=== PATIENT | female | born 1980 | race Caucasian/White ===

== ENCOUNTER 2017-01-31 14:06 | Inpatient (IN) | payer OTHER ==
[2017-01-31] VITALS (16 sets, daily range): BP systolic 104–119; BP diastolic 59–82; PULSE 74–89; RESP 9–19; TEMP 97.5–99.4; O2SAT 97–98
[~2017-01-31] VITALS: Ht 160 cm; Wt 92.0 kg
[2017-01-31] MEDS ORDERED: LACTATED RINGER'S 1000 ML INJ 1,000 ML IV PRN (14:46)
[2017-01-31] MEDS: LACTATED RINGER'S 1000 ML INJ 1,000 ML IV SCH ×2 (15:00→18:05)
[2017-01-31] MEDS ORDERED: OXYTOCIN 30 UNITS-500ML PREMIX 500 ML IV ONE ×2 (15:00→23:00)
[2017-01-31] MEDS ORDERED: MINERAL OIL 10 ML VIAL TOPICAL PRN (15:00)
[2017-01-31] MEDS ORDERED: SODIUM CHLORID 0.9% 500 ML INJ 500 ML IV PRN (15:00)
[2017-01-31] MEDS ORDERED: ONDANSETRON HCL 4 MG/2 ML VIAL IV PUSH PRN (15:00)
--- NOTE | 2017-01-31 15:02 | PD ---
HPI Chief Complaint abd pain Date Seen: Jan 31, 2017 Time Seen: 14:52 Travel History International Travel<30 Days: No Contact w/Intl Traveler<30Days: No Known Affected Area: No History of Present Illness HPI Pt si a 36y/o @ 39.6wks. She has PNC with Dr. Flores. She was scheduled for a 1' c/s tomorrow for small pelvis. She states that approx 1hr prior to coming here she started having abd pain. She took tylenol but it continued so she decided to come in. She denies LOF or VB. +FM. Weeks Gestation: 39 Para: 0 : 1 History Past Medical History Medical History: Denies Significant Hx Obstetric History Obstetric History 1. current Past Surgical History Surgical History: No Previous Surgery Family History Family History: Negative Social History Alcohol Use: No Tobacco Use: No Substance Abuse: No Review of Systems Except as stated in HPI: all other systems reviewed are Neg Physical Exam Narrative GENERAL: Well-nourished, well-developed patient. SKIN: Warm and dry. HEAD: Normocephalic and atraumatic. EYES: No scleral icterus. No injection or drainage. ENT: No nasal drainage noted. Mucous membranes pink. Airway patent. EXTREMITIES: No cyanosis NEUROLOGICAL: Awake and alert. Motor and sensory grossly within normal limits. FHTs: 140s, +accels, no decels, moderate variability, reactive TOCO: ctx q2m CVX: 1/30/-2, posterior cervix behind head, soft; narrow introitus but adequate pelvimetry Data Data Vital Signs Reviewed: Yes Group B Strep: Negative MDM Plan 36y/o @ 39.6wks in latent labor. -- adequate pelvis, would like to attempt ; counseled that c/s may be necessary for indications or failure to progress/CPD if pushing is not- successful -- FHT cat 1 -- toco with RUCs -- admit to L&D -- CLD, epidural PRN Dr. Flores (pulmonary function technologist) notified of pt status and agrees with POC to attempt . Courtesy orders placed. She will assume care of the pt. Diagnosis Diagnosis: Primary Impression: 39 weeks gestation of Additional Impressions: Uterine contractions during Obesity affecting in third trimester Chauncey Gamboa MD Jan 31, 2017 15:02
[2017-01-31] MEDS ORDERED: SODIUM CHLOR 0.9% 1000 ML INJ 1,000 ML IV PRN (15:06)
[2017-01-31] MEDS ORDERED: TYLE325T PO (15:11)
[2017-01-31] MEDS ORDERED: PREN29TA PO (15:11)
[2017-01-31 16:16] LABS: AUTOMATED NEUTROPHIL # 6.6 TH/MM3 (1.8-7.7); BASOPHIL % 0.4 % (0.0-2.0); EOSINOPHIL # 0.1 TH/MM3 (0-0.4); EOSINOPHIL % 1.1 % (0.0-4.0); HEMATOCRIT 38.7 % (35.0-46.0); HEMOGLOBIN 13.4 GM/DL (11.6-15.3); LYMPH % 18.7 % (9.0-44.0); LYMPHOCYTE # 1.7 TH/MM3 (1.0-4.8); MEAN CELL VOLUME 95.7 FL (80.0-100.0); MEAN CORPUSCULAR HEMOGLOBIN 33.2 PG (27.0-34.0); MEAN CORPUSCULAR HGB CONC 34.7 % (32.0-36.0); MEAN PLATELET VOLUME 11.4 FL (7.0-11.0); MONO % 7.5 % (0.0-8.0); MONOCYTE # 0.7 TH/MM3 (0-0.9); NEUT % 72.3 % (16.0-70.0); PLATELET COUNT 145 TH/MM3 (150-450); RED BLOOD COUNT 4.04 MIL/MM3 (4.00-5.30); WHITE BLOOD COUNT 9.1 TH/MM3 (4.0-11.0)
[2017-01-31 16:21] LABS: BACTERIA, URINE MANY /hpf; BILIRUBIN, URINE NEG (NEG); BLOOD, URINE NEG (NEG); GLUCOSE,URINE NEG (NEG); KETONE, URINE NEG (NEG); MUCUS URINE FEW /lpf (OCC); NITRITE,URINE NEG (NEG); SQUAMOUS EPITHELIAL CELL URINE 2 /hpf (0-5); URINE COLOR YELLOW (YELLW/STRAW); URINE LEUKOCYTE ESTERASE LARGE (NEG)
[2017-01-31] MEDS ORDERED: ACETAMINOPHEN 325 MG TAB PO ONE (20:00)
[2017-01-31] MEDS ORDERED: LACTATED RINGER'S 1000 ML INJ 1,000 ML IV ONE (20:44)
--- NOTE | 2017-01-31 20:48 | PD.CONS ---
History & Physical H&P Pt is a 36 yo G1 with iup at 39w6 d who presented with regular contractions q 1- 2 minutes. She was 1cm dilate and has not progressed. Discussed with RN jordan placement for mechanical dilation, pt was in agreement.l While was en route to hospital, pt developed tachycardia and a low grade temp. She was still 1 cm, not a good candidate for jordan placement at this time. She was given a fluid bolus and tylenol and tachycardia did not resolve. Concern for chorioamnionitis. Discussed she is remote from delivery and seems to be developing an infection and next best step would be to proceed with cd. PT and in agreement with plan of care. Consents signed on chart. OR team and anesthesia informed. Savanah Flores MD Jan 31, 2017 20:48
[2017-01-31] MEDS ORDERED: ceFAZolin INJ 1,000 MG VIAL ONE (20:52)
[2017-01-31] MEDS ORDERED: LACTATED RINGER'S 1000 ML INJ 1,000 ML IV SCH (21:14)
[2017-01-31] MEDS ORDERED: EPIDURAL-DO NOT ADMINISTER ANTICOAGULANTS PRN (21:15)
[2017-01-31] MEDS ORDERED: EPIDURAL-NALOXONE HCL 0.4 MG/ML AMP IV PUSH PRN (21:15)
[2017-01-31] MEDS ORDERED: EPIDURAL-NO SYSTEMIC NARCOTICS PRN (21:15)
[2017-01-31] MEDS ORDERED: EPIDURAL-DIPHENHYDRAMINE HCL 50 MG CAP PO PRN (21:15)
[2017-01-31] MEDS ORDERED: EPIDURAL-DIPHENHYDRAMINE HCL 50 MG/ML VIAL IV PUSH PRN (21:15)
[2017-01-31] MEDS ORDERED: METHYLERGONOVINE MALEATE 0.2 MG/ML VIAL ONE (21:43)
[2017-01-31] MEDS ORDERED: ceFAZolin 2 GM PREMIX 50 ML IV SCH (21:45)
[2017-01-31] MEDS ORDERED: CITRIC ACID-SODIUM CITRATE LIQ 30 ML UDC PO SCH (22:15)
[2017-01-31] MEDS ORDERED: OXYTOCIN 30 UNITS-500ML PREMIX 500 ML ONE (22:41)
--- NOTE | 2017-01-31 22:48 | PD.OB.DELI ---
Procedure Note Section Procedure Pre Op Diagnosis: (1) tachycardia before the onset of labor (2) Chorioamnionitis (3) 39 weeks gestation of Post Op Diagnosis: (1) 39 weeks gestation of (2) Chorioamnionitis (3) tachycardia before the onset of labor Performed by Savanah Flores Procedure: Primary Low Transverse Sec Indication for delivery: Maternal medical problems Previous condition: None Informed consent obtained: For anesthesia, For procedure Confirmed correct: Patient, Procedure, Site, Time-out taken Anesthesia: Spinal Medication prior to procedure: As documented in eMAR Monitoring during procedure: Blood pressure monitoring, Pulse oximetry Urinary catheter: Inserted using sterile technique, To dependent drainage, ml urine output (150) Sterile preparation: With 2% chlorexidine (Hibiclens) Position: Supine with wedge to right side, Supine with safety belt applied Operative Features Skin Incision: Pfannenstiel Uterine Incision: Low transverse w/knife / blunt ext Membranes Ruptured: Artificially, Amount of liquid (copious), Appearance of fluid (clear) Presentation: Occiput anterior Delivery date: Jan 31, 2017 Delivery time: 21:37 Delivery of : Uneventful : Female One Minute : 9 Five Minute : 9 Weight: 3740 Status of : Viable Placenta delivered: Intact Medications: Antibiotics, Oxytocin, Ergot derivatives Estimated blood loss: 800ml Procedure tolerated: Well Maternal Condition: Stable Condition: Stable Procedure in detail dictated Savanah Flores MD Jan 31, 2017 22:48
[2017-01-31] MEDS ORDERED: ZOLPIDEM TARTRATE 5 MG TAB PO PRN (23:00)
[2017-01-31] MEDS ORDERED: SODIUM CHLORIDE 0.9% FLUSH 10 ML FLUSH IV FLUSH PRN (23:00)
[2017-01-31] MEDS ORDERED: ACETAMINOPHEN 325 MG TAB PO PRN (23:00)
[2017-01-31] MEDS ORDERED: SIMETHICONE 80 MG CHEWABLE TAB PO PRN (23:00)
[2017-02-01 00:04] VITALS: BP 101/74; PULSE 90
[2017-02-01 00:05] VITALS: RESP 16; TEMP 98.5; O2SAT 96
[2017-02-01 04:00] VITALS: BP 107/61; PULSE 78; RESP 17; TEMP 98.6; O2SAT 97
[2017-02-01] MEDS: LACTATED RINGER'S 1000 ML INJ 1,000 ML IV SCH ×2 (04:57→09:58)
[2017-02-01] MEDS: ONDANSETRON HCL 4 MG/2 ML VIAL IV PUSH PRN ×2 (04:57→09:58)
[2017-02-01 06:27] LABS: AUTOMATED NEUTROPHIL # 10.3 TH/MM3 (1.8-7.7); BASOPHIL % 0.2 % (0.0-2.0); EOSINOPHIL % 0.1 % (0.0-4.0); HEMATOCRIT 33.8 % (35.0-46.0); HEMOGLOBIN 11.6 GM/DL (11.6-15.3); LYMPH % 8.7 % (9.0-44.0); MEAN CELL VOLUME 95.3 FL (80.0-100.0); MEAN CORPUSCULAR HEMOGLOBIN 32.6 PG (27.0-34.0); MEAN CORPUSCULAR HGB CONC 34.2 % (32.0-36.0); MONO % 4.6 % (0.0-8.0); MONOCYTE # 0.6 TH/MM3 (0-0.9); NEUT % 86.4 % (16.0-70.0); PLATELET COUNT 120 TH/MM3 (150-450); RED BLOOD COUNT 3.55 MIL/MM3 (4.00-5.30); RED CELL DISTRIBUTION WIDTH 14.1 % (11.6-17.2)
[2017-02-01 08:00] VITALS: BP 103/77; PULSE 84; RESP 18; TEMP 98.2
[2017-02-01] MEDS ORDERED: OXYTOCIN 30 UNITS-500ML PREMIX 500 ML IV PRN (09:00)
[2017-02-01] MEDS ORDERED: SODIUM CHLORIDE 0.9% FLUSH 10 ML FLUSH IV FLUSH SCH (09:00)
[2017-02-01 12:00] VITALS: BP 104/79; PULSE 88; RESP 18; TEMP 98.2
--- NOTE | 2017-02-01 12:36 | HHI.OB ---
Subjective Post Operative Day: 1 Remarks Pt still not ambulating, jordan in. Was nauseated, and got zofran. Pain well controlled. Objective Vitals/I&O Vital Signs Date Time Temp Pulse Resp B/P (MAP) Pulse Ox O2 Delivery O2 Flow Rate FiO2 02/01/17 08:00 98.2 18 02/01/17 08:00 84 103/77 (86) 02/01/17 04:00 98.6 78 17 107/61 (76) 97 02/01/17 00:05 98.5 16 96 02/01/17 00:04 90 101/74 (83) 01/31/17 23:33 97.7 01/31/17 23:31 104/59 (74) 01/31/17 23:26 15 98 01/31/17 23:25 77 01/31/17 23:17 85 17 115/73 (87) 97 01/31/17 23:00 19 01/31/17 23:00 9 97 01/31/17 22:59 77 111/70 (84) 01/31/17 22:47 97.5 83 16 98 01/31/17 22:46 109/68 (82) 01/31/17 19:00 82 15 117/81 (93) 01/31/17 18:59 99.4 01/31/17 18:30 98.1 16 01/31/17 18:19 81 119/82 (94) 01/31/17 17:29 18 01/31/17 17:29 74 111/75 (87) 01/31/17 16:29 89 119/71 (87) 01/31/17 16:28 98.4 18 Result Diagram: 02/01/17 0612 Objective Remarks GENERAL: Well-nourished, well-developed patient. CARDIOVASCULAR: Regular rate and rhythm without murmurs, gallops, or rubs. RESPIRATORY: Breath sounds equal bilaterally. No accessory muscle use. ABDOMEN/GI: Abdomen soft, non-tender, bowel sounds present. Incision: dressing clean, dry and intact. Fundus: Firm, non-tender at umbilicus. GENITOURINARY: Light to moderate bleeding. EXTREMITIES: No cyanosis or edema, non-tender, without signs of DVT. SCD in place Medications and IVs Current Medications Medications (Trade) Dose Ordered Sig/Nell Route Start Time Stop Time Status Last Admin Lactated Ringer's 1,000 ml @ 100 mls/hr Q10H IV 02/01/17 03:56 02/01/17 23:55 02/01/17 09:58 Oxytocin 500 ml @ 100 mls/hr UNSCH X1 PRN IV 02/01/17 09:00 02/02/17 08:59 (NS Flush) 2 ml BID IV FLUSH 02/01/17 09:00 (NS Flush) 2 ml UNSCH PRN IV FLUSH 01/31/17 23:00 (Mylicon Chew) 80 mg QID PRN PO 01/31/17 23:00 (Tylenol) 650 mg Q6H PRN PO 01/31/17 23:00 (Motrin) 600 mg Q6H PRN PO 01/31/17 23:00 (Percocet 5-325 Mg) 1 tab Q4H PRN PO 01/31/17 23:00 (Percocet 5-325 Mg) 2 tab Q4H PRN PO 01/31/17 23:00 (Micaela-Colace) 2 tab Q12H PRN PO 01/31/17 23:00 (Ambien) 5 mg HS PRN PO 01/31/17 23:00 (M-M-R Ii Inj) 0.5 ml ONCE ONCE SQ 02/01/17 16:00 02/01/17 16:01 (Boostrix Inj) 0.5 ml ONCE ONCE IM 02/01/17 16:00 02/01/17 16:01 (Zofran Inj) 4 mg Q6H PRN IV PUSH 01/31/17 23:00 02/01/17 09:58 Miscellaneous Information NO SYSTEMIC NARCOTICS TO BE GIVEN FO... UNSCH PRN .XX 01/31/17 21:15 02/01/17 21:14 (Narcan Inj) 0.4 mg UNSCH PRN IV PUSH 01/31/17 21:15 02/01/17 21:14 (Benadryl Inj) 25 mg Q6H PRN IV PUSH 01/31/17 21:15 02/01/17 21:14 (Benadryl) 50 mg Q6H PRN PO 01/31/17 21:15 02/01/17 21:14 Miscellaneous Information ALL NURSING DEPARTMENTS UNSCH PRN .XX 01/31/17 21:15 02/01/17 21:14 Assessment/Plan Problem List: (1) delivery delivered ICD Codes: O82 - Encounter for delivery without indication Assessment and Plan 36 yo POD 1 s/p primary for suspected chorio (maternal fever and tachycardia) Placental cultures still pending, no maternal fever since delivery Goals for today, remove jordan and void, ambulate, increase po intake, control pain D/c likely pod 2-3 Savanah Flores MD Feb 01, 2017 12:36
[2017-02-01] MEDS: IBUPROFEN 600 MG TAB PO PRN ×2 (13:27→21:16)
[2017-02-01] MEDS: oxyCODONE/ACETAMINOPHEN 5 MG/325 MG TAB PO PRN ×2 (15:54→21:16)
[2017-02-01] MEDS ORDERED: MEASLES, MUMPS, RUBELLA VACCINE 0.5 ML VIAL SQ ONE (16:00)
[2017-02-01] MEDS ORDERED: DIPHTH/TETANUS/ACEL PERTUSSIS (BOOSTER) 0.5 ML VIAL/PFS IM ONE (16:00)
[2017-02-01 21:00] VITALS: BP 97/66; PULSE 75; RESP 18; TEMP 98.7; O2SAT 98
[2017-02-01] MEDS: DOCUSATE SODIUM 50 MG/SENNA 8.6 MG TAB PO PRN (21:16)
[2017-02-02] MEDS: IBUPROFEN 600 MG TAB PO PRN ×2 (04:40→17:49)
[2017-02-02] MEDS: oxyCODONE/ACETAMINOPHEN 5 MG/325 MG TAB PO PRN ×3 (04:41→17:50)
[2017-02-02 08:00] VITALS: BP 103/71; PULSE 77; RESP 18; TEMP 98.2
--- NOTE | 2017-02-02 08:09 | HHI.OB ---
Subjective Post Operative Day: 2 Remarks doing well, eating OK Objective Vitals/I&O Vital Signs Date Time Temp Pulse Resp B/P (MAP) Pulse Ox O2 Delivery O2 Flow Rate FiO2 02/01/17 21:00 75 18 97/66 (76) 02/01/17 21:00 98.7 98 02/01/17 12:00 104/79 (87) 02/01/17 12:00 98.2 88 18 Result Diagram: 02/01/17 0612 Objective Remarks GENERAL: Well-nourished, well-developed patient. CARDIOVASCULAR: Regular rate and rhythm without murmurs, gallops, or rubs. RESPIRATORY: Breath sounds equal bilaterally. No accessory muscle use. ABDOMEN/GI: Abdomen soft, non-tender, bowel sounds present. Incision: dressing clean, dry and intact. Fundus: Firm, non-tender at umbilicus. GENITOURINARY: Light to moderate bleeding. EXTREMITIES: No cyanosis or edema, non-tender, without signs of DVT Medications and IVs Current Medications Medications (Trade) Dose Ordered Sig/Nell Route Start Time Stop Time Status Last Admin Oxytocin 500 ml @ 100 mls/hr UNSCH X1 PRN IV 02/01/17 09:00 02/02/17 08:59 (NS Flush) 2 ml BID IV FLUSH 02/01/17 09:00 (NS Flush) 2 ml UNSCH PRN IV FLUSH 01/31/17 23:00 (Mylicon Chew) 80 mg QID PRN PO 01/31/17 23:00 (Tylenol) 650 mg Q6H PRN PO 01/31/17 23:00 (Motrin) 600 mg Q6H PRN PO 01/31/17 23:00 02/02/17 04:40 (Percocet 5-325 Mg) 1 tab Q4H PRN PO 01/31/17 23:00 02/02/17 04:41 (Percocet 5-325 Mg) 2 tab Q4H PRN PO 01/31/17 23:00 (Micaela-Colace) 2 tab Q12H PRN PO 01/31/17 23:00 02/01/17 21:16 (Ambien) 5 mg HS PRN PO 01/31/17 23:00 (Zofran Inj) 4 mg Q6H PRN IV PUSH 01/31/17 23:00 11/5/17 09:58 Assessment/Plan Problem List: (1) delivery delivered ICD Codes: O82 - Encounter for delivery without indication Assessment and Plan 36 yo POD# 2 s/p primary for suspected chorio (maternal fever and tachycardia) Placental cultures still pending, no maternal fever since delivery D/c likely pod 2-3 Discharge Planning routine Attending Attestation pt seen by Maricruz Puckett MD Feb 02, 2017 08:09
[2017-02-02] MEDS ORDERED: IBUP-232 PO (08:11)
[2017-02-02] MEDS ORDERED: OXYC1TAB63 PO (08:11)
--- NOTE | 2017-02-02 08:11 | HHI.DCPOC ---
Discharge Care Plan Your Health Problems Are: Pelvic pain Report Symptoms to Your Doctor -Temperature above 100.5 degrees -Redness, of incision or excessive or foul smelling drainage -Unusual pain or calf pain -Increased vaginal bleeding -Painful or difficulty urinating -Feelings of extreme sadness or anxiety after 2 weeks Goals to Promote Your Health * To prevent worsening of your condition and complications * To maintain your health at the optimal level Directions to Meet Your Goals Take your medications as prescribed Follow your dietary instruction Follow activity as directed Ensure plenty of rest for recovery Drink fluids for hydration Keep your appointments as scheduled Take your immunizations and boosters as scheduled If your symptoms worsen call your PCP, if no PCP go to Urgent Care Center or Emergency Room Smoking is Dangerous to Your Health. Avoid second hand smoke Call the 24-hour crisis hotline for domestic abuse at Maricruz Austin MD Feb 02, 2017 08:11
--- NOTE | 2017-02-02 08:11 | HHI.DCPOC ---
Discharge Care Plan Your Health Problems Are: Pelvic pain Report Symptoms to Your Doctor -Temperature above 100.5 degrees -Redness, of incision or excessive or foul smelling drainage -Unusual pain or calf pain -Increased vaginal bleeding -Painful or difficulty urinating -Feelings of extreme sadness or anxiety after 2 weeks Goals to Promote Your Health * To prevent worsening of your condition and complications * To maintain your health at the optimal level Directions to Meet Your Goals Take your medications as prescribed Follow your dietary instruction Follow activity as directed Ensure plenty of rest for recovery Drink fluids for hydration Keep your appointments as scheduled Take your immunizations and boosters as scheduled If your symptoms worsen call your PCP, if no PCP go to Urgent Care Center or Emergency Room Smoking is Dangerous to Your Health. Avoid second hand smoke Call the 24-hour crisis hotline for domestic abuse at Maricruz Austin MD Feb 02, 2017 08:11
--- NOTE | 2017-02-02 08:11 | HHI.DCPOC ---
Discharge Care Plan Your Health Problems Are: Pelvic pain Report Symptoms to Your Doctor -Temperature above 100.5 degrees -Redness, of incision or excessive or foul smelling drainage -Unusual pain or calf pain -Increased vaginal bleeding -Painful or difficulty urinating -Feelings of extreme sadness or anxiety after 2 weeks Goals to Promote Your Health * To prevent worsening of your condition and complications * To maintain your health at the optimal level Directions to Meet Your Goals Take your medications as prescribed Follow your dietary instruction Follow activity as directed Ensure plenty of rest for recovery Drink fluids for hydration Keep your appointments as scheduled Take your immunizations and boosters as scheduled If your symptoms worsen call your PCP, if no PCP go to Urgent Care Center or Emergency Room Smoking is Dangerous to Your Health. Avoid second hand smoke Call the 24-hour crisis hotline for domestic abuse at Maricruz Austin MD Feb 02, 2017 08:11
[2017-02-02] MEDS: DOCUSATE SODIUM 50 MG/SENNA 8.6 MG TAB PO PRN (11:11)
--- NOTE | 2017-02-02 12:19 | MP ---
cc: SAVANAH FLORES MD DATE OF SURGERY 01/31/2017 PREOPERATIVE DIAGNOSES 1. Intrauterine at 39 weeks and 6 days. 2. Suspected chorioamnionitis with maternal low grade temperature and tachycardia. POSTOPERATIVE DIAGNOSES 1. Intrauterine at 39 weeks and 6 days. 2. Suspected chorioamnionitis with maternal low grade temperature and tachycardia. PROCEDURE PERFORMED Primary low transverse delivery. INDICATIONS The patient is a 36-year-old G1 who presented in labor with contractions every 1-2 minutes. She was admitted for expectant management. After 4 hours, she had no cervical change, was still 1 cm dilated, had discussed with the patient induction of labor via Cortez bulb but at the time of examination mother had a low-grade temperature of 99.4 and the fetus had developed tachycardia up to the 180s that did not respond to fluid bolus or Tylenol. Decision was made with the patient and partner that, given that she was remote from delivery and was demonstrating signs of chorioamnionitis, it would be in her best interest to proceed with delivery. Consent signed and on chart. SURGEON Savanah Flores MD CALL CENTER DISPATCHER Varsha Isabel, MS3 [facility] ANESTHESIA Spinal. PREOPERATIVE ANTIBIOTICS Ancef 2 grams IV given pre-incision. DVT PROPHYLAXIS SCDs bilateral extremities. IV FLUIDS 2600 mL lactated Ringers. ESTIMATED BLOOD LOSS 100 mL. URINE OUTPUT 150 mL of clear yellow urine at the end of the case. INTRAOPERATIVE FINDINGS Viable female with Apgars of 9 and 9 1 minute and 5 minutes respectively. weight of 3740 grams. Normal placenta with three-vessel cord. The umbilical cord was extremely long, over 25 cm in length. Cord blood and gases were collected. A very small sub-cm fibroid on anterior fundal aspect of the uterus. Normal tubes bilaterally. Small ovaries bilaterally. COMPLICATIONS None. COUNTS Correct x3. PROCEDURE IN DETAIL After giving informed consent, the patient was taken to the operating room where spinal anesthesia was administered without complication. She was placed on dorsal supine position with slight leftward tilt and a Cortez was placed under sterile conditions. SCDs were placed on bilateral lower extremities. The abdomen was prepped and draped in normal sterile fashion. A Pfannenstiel skin incision was made with a scalpel, carried down to underlying layer of fascia with the Bovie. The fascia was incised in the midline, extended bilaterally with Redd scissors. The rectus muscles were from the fascia bluntly and with the aid of Redd scissors. There was no bleeding from the perforating vessels of the fascia and the rectus muscles. These were made hemostatic with the Bovie. The inferior aspect of the fascia was grasped with Martin clamps and the rectus muscles were with blunt dissection as well as with Redd scissors. The rectus muscles were in the midline bluntly. The peritoneum was entered bluntly. Bladder blade was then inserted. A bladder flap was created with Metzenbaum scissors. A low transverse uterine incision was made with a scalpel. This incision was extended bluntly. The head was flexed and brought to the level of the hysterotomy. Fundal pressure was used to deliver the head. The rest of the body readily followed. The nose was bulb suctioned. Delayed cord clamping was performed. The baby was handed off to the awaiting nursery team. The placenta was delivered using gentle cord traction and uterine massage. The uterus was exteriorized and the uterine cavity was cleaned with moistened laparotomy sponges and all debris and membranes were removed. The uterus was closed in two layers of running chromic in a running locked fashion followed by an imbricating layer. There was an area of oozing in the central aspect of the uterus; this was made hemostatic with a [id number] with 2-0 chromic. The posterior cul-de-sac was irrigated and suctioned. The uterus was inspected and noted to be hemostatic. This was returned to the abdomen. There was decreased tone and a dose of Methergine was given intraoperatively in addition to the IV infusion of Pitocin. The uterus was then returned to the abdomen. The peritoneum was closed with 2-0 chromic in a running fashion. The fascia was then closed with #1 Vicryl in a running fashion. Subcutaneous tissue was irrigated and suctioned. Hemostasis was obtained with the Bovie. The subcutaneous tissue was closed with 2-0 chromic in a running fashion. The skin was closed with 4-0 Monocryl in a subcuticular fashion. Steri-Strips were placed followed by a sterile dressing. The patient tolerated the procedure well. She was sent to PACU in stable condition. REMARKS The patient is an acceptable candidate for a trial of labor after delivery. MD DINO Artis /10:36 PM /1:02 PM
[2017-02-02 20:00] VITALS: BP 117/82; PULSE 71; RESP 20; TEMP 98.8
[2017-02-03] MEDS: oxyCODONE/ACETAMINOPHEN 5 MG/325 MG TAB PO PRN ×4 (00:08→13:36)
[2017-02-03] MEDS: IBUPROFEN 600 MG TAB PO PRN ×3 (00:08→13:35)
[2017-02-03 07:20] VITALS: BP 110/75; PULSE 85; RESP 16; TEMP 98.6
--- NOTE | 2017-02-03 08:53 | HHI.OB ---
Subjective Post Operative Day: 3 Remarks 36 yo s/p primary LTCS, POD #3, doing well, ambulating, voiding, TPO, no n/v, VB < menses. Objective Vitals/I&O Vital Signs Date Time Temp Pulse Resp B/P (MAP) Pulse Ox O2 Delivery O2 Flow Rate FiO2 02/03/17 07:20 85 16 110/75 (87) 02/03/17 07:20 98.6 02/02/17 20:00 98.8 71 20 117/82 (94) Result Diagram: 02/01/17 0612 Objective Remarks GENERAL: Well-nourished, well-developed patient. CARDIOVASCULAR: Regular rate and rhythm without murmurs, gallops, or rubs. RESPIRATORY: Breath sounds equal bilaterally. No accessory muscle use. ABDOMEN/GI: Abdomen soft, non-tender, bowel sounds present. Incision: incision clean, dry and intact w/ steri stirp, dressing removed. Fundus: Firm, non-tender at umbilicus. GENITOURINARY: Light to moderate bleeding. EXTREMITIES: No cyanosis or edema, non-tender, without signs of DVT Medications and IVs Current Medications Medications (Trade) Dose Ordered Sig/Nell Route Start Time Stop Time Status Last Admin (NS Flush) 2 ml BID IV FLUSH 02/01/17 09:00 (NS Flush) 2 ml UNSCH PRN IV FLUSH 01/31/17 23:00 (Mylicon Chew) 80 mg QID PRN PO 01/31/17 23:00 (Tylenol) 650 mg Q6H PRN PO 01/31/17 23:00 (Motrin) 600 mg Q6H PRN PO 01/31/17 23:00 02/03/17 06:03 (Percocet 5-325 Mg) 1 tab Q4H PRN PO 01/31/17 23:00 02/03/17 00:10 (Percocet 5-325 Mg) 2 tab Q4H PRN PO 01/31/17 23:00 02/03/17 06:03 (Micaela-Colace) 2 tab Q12H PRN PO 01/31/17 23:00 02/02/17 11:11 (Ambien) 5 mg HS PRN PO 01/31/17 23:00 (Zofran Inj) 4 mg Q6H PRN IV PUSH 01/31/17 23:00 02/01/17 09:58 Assessment/Plan Problem List: (1) delivery delivered ICD Codes: O82 - Encounter for delivery without indication Status: Acute (2) Urinary tract infection ICD Codes: N39.0 - Urinary tract infection, site not specified Status: Acute Qualifiers: Qualified Codes: N30.00 - Acute cystitis without hematuria Plan: Staph UTI found at admission w/ routine urine culture. Will give 1g IV Rocephin today, waiting on sensitives, Assessment and Plan 36 yo POD# 3 s/p primary for suspected chorio (maternal fever and tachycardia) Placental cultures still pending, no maternal fever since delivery D/c today Discharge Planning routine Renato Mattson MD Feb 03, 2017 08:53
[2017-02-03] MEDS ORDERED: LIDOCAINE HCL 1% PF 5 ML AMPULE OTHER ONE (13:30)
== END 2017-02-03 16:18 | disposition home or self-care (01) | DRG 765 ==
LOC: HOBED 14:06 → H2EB 14:56 → H1EA 23:45
PROVIDERS: ADMIT Obstetrics & Gynecology; ATTEND Obstetrics & Gynecology
PROC: 10D00Z1 Extraction of Products of Conception, Low, Open Approach (ICD-10-PCS; principal; 2017-01-31)
DX: O76 Abnormality in fetal heart rate and rhythm complicating labor and delivery (principal); O75.3 Other infection during labor; O75.2 Pyrexia during labor, not elsewhere classified; N39.0 Urinary tract infection, site not specified; B95.8 Unspecified staphylococcus as the cause of diseases classified elsewhere; O99.214 Obesity complicating childbirth; E66.9 Obesity, unspecified; Z68.35 Body mass index [BMI] 35.0-35.9, adult; R11.0 Nausea; Z3A.39 39 weeks gestation of pregnancy; Z37.0 Single live birth
CPT/HCPCS: 59025; 80307; 81001; 82805; 85025; 86850; 86900; 86901; 87070; 87086; 88307; J0690; J0696; J2210; J2405; J2590; J3010; J7120